=== PATIENT | male | born 1940 | race Caucasian/White ===

== ENCOUNTER 2023-04-16 12:32 | Outpatient (CLI) | payer OTHER, MEDICAID ==
[~2023-04-16 12:32] MED LIST: Magnevist 469MG/ML 20 ML VIAL ONE
== END 2023-04-16 12:33 | disposition home or self-care (01) ==
LOC: CSHMRI 12:32
PROVIDERS: ATTEND Neurological Surgery
DX: D33.2 Benign neoplasm of brain, unspecified (principal); D42.0 Neoplasm of uncertain behavior of cerebral meninges; Z98.890 Other specified postprocedural states
CPT/HCPCS: 70553; 82565

== ENCOUNTER 2024-07-01 12:44 | Outpatient (CLI) | payer OTHER, MEDICAID | END 2024-07-01 12:45 | disposition home or self-care (01) | LOC: CSHMRI 12:44 | PROVIDERS: ATTEND Neurological Surgery | DX: D32.0 Benign neoplasm of cerebral meninges (principal); Z98.890 Other specified postprocedural states | CPT/HCPCS: 36415; 70553; 76376; 82565 ==